=== PATIENT | male | born 1970 | race Caucasian/White ===

== ENCOUNTER 2020-08-16 09:41 | Day surgery (SDC) | payer OTHER, SELFPAY ==
[~2020-08-16] VITALS: Ht 172.7 cm; Wt 71.7 kg
[2020-08-16] MEDS ORDERED: LIDOCAINE 2% 100 MG/5 ML UJET TP ONE ×2 (11:38→12:25)
[2020-08-16] MEDS ORDERED: fentaNYL citrate 0.05 MG/ML VIAL ONE (11:38)
[2020-08-16] MEDS ORDERED: MIDAZOLAM 5 MG/5 ML VIAL ONE (11:38)
[2020-08-16] MEDS ORDERED: diphenhydrAMINE 50 MG/ML VIAL ONE (11:38)
[2020-08-16] MEDS ORDERED: MIDAZOLAM 2 MG/2 ML VIAL IVP ONE (12:25)
[2020-08-16] MEDS ORDERED: fentaNYL citrate 0.05 MG/ML VIAL IVP ONE (12:25)
[2020-08-16] MEDS ORDERED: diphenhydrAMINE 50 MG/ML VIAL IVP ONE (12:25)
== END 2020-08-16 12:55 | disposition home or self-care (01) ==
LOC: MDS 09:41 → MMU 09:58 → MDS 12:55
PROVIDERS: ATTEND Internal Medicine Gastroenterology
DX: Z12.11 Encounter for screening for malignant neoplasm of colon (principal); D12.4 Benign neoplasm of descending colon; E78.00 Pure hypercholesterolemia, unspecified; E03.9 Hypothyroidism, unspecified; Z79.899 Other long term (current) drug therapy
CPT/HCPCS: 45385; J1200; J2250; J3010; U0003